=== PATIENT | female | born 2000 | race Two or more races ===

== ENCOUNTER 2021-06-11 11:15 | Inpatient (IN) | payer OTHER ==
[~2021-06-11] VITALS: Ht 157.5 cm; Wt 65.8 kg
[2021-06-11] MEDS ORDERED: hydrALAZINE HCL 20 MG/ML VL ONE (11:51)
[2021-06-11] MEDS: hydrALAZINE HCL 20 MG/ML VL IV PRN ×3 (11:54→12:32)
[2021-06-11] MEDS ORDERED: PHISODERM TOP SOLN 240ML BTL TOP PRN (12:15)
[2021-06-11] MEDS ORDERED: BUTORPHANOL TARTRATE 2 MG/1 ML VIAL IV PRN (12:15)
[2021-06-11] MEDS ORDERED: LIDOCAINE 2%HCL (LOCAL ANESTH.) INJ 20ML MDV IJ PRN (12:15)
[2021-06-11] MEDS ORDERED: LACTATED RINGER'S 1,000 ML IV SCH (12:15)
[2021-06-11] MEDS ORDERED: WITCH HAZEL-GLYCERIN PAD TOP PRN (12:15)
[2021-06-11] MEDS ORDERED: LORazepam 2MG/ML-1ML VIAL IV PRN (12:15)
[2021-06-11] MEDS ORDERED: PROMETHAZINE HCL 25 MG/ML 1ML IV PRN (12:15)
[2021-06-11] MEDS ORDERED: DERMOPLAST 60ML BOTTLE TOP PRN (12:15)
[2021-06-11] MEDS ORDERED: MAGNESIUM SULFATE 100 ML IV ONE ×2 (12:15→12:20)
[2021-06-11] MEDS ORDERED: MAGNESIUM SULFATE 40MG/ML 1,000 ML IV ONE (12:20)
[2021-06-11] MEDS: LACTATED RINGER'S 1,000 ML IV SCH ×2 (12:33→21:14)
[2021-06-11 12:37] LABS: Hemoglobin 14.6 g/dL (12.2-16.2); Mean Corpuscular Hemoglobin 30.4 pg (28.0-32.0); Mean Corpuscular Volume 89.5 fL (80.0-100.0); Red Blood Cells 4.81 10^6/uL (4.0-5.20); Red Cell Distribution Width 15.1 % (11.8-14.3); White Blood Cell 13.7 10^3/uL (4.4-10.8)
[2021-06-11 12:40] LABS: Urine Bacteria NONE SEEN /hpf (None Seen); Urine Blood 3+ /uL (Negative); Urine Hyaline Cast FEW /lpf (0 - 2); Urine Specific Gravity 1.005 (1.001-1.035); Urine WBC 1 /hpf (0 - 5)
[2021-06-11 12:42] LABS: Basophils % (manual) 0 (0.0-2.0); Blast Cells 0; Myelocytes % 0; Promyelocytes % 0; Reactive Lymphocytes 0
[2021-06-11] MEDS: MAGNESIUM SULFATE 40MG/ML 1,000 ML IV SCH (12:44)
[2021-06-11 12:45] LABS: Alcohol, Urine < 3.0 mg/dL (0-10); Amphetamine Screen, Urine NEGATIVE (NEGATIVE); Barbiturate Scree,Urine NEGATIVE (NEGATIVE); Benzodiazephine Screen, Urine NEGATIVE (NEGATIVE); Cannabinoid Screen, Urine NEGATIVE (NEGATIVE); Cocaine Screen, Urine NEGATIVE (NEGATIVE); Opiate Scree,Urine NEGATIVE (NEGATIVE); Phencyclidine Screen, Urine NEGATIVE (NEGATIVE)
[2021-06-11 12:53] LABS: INR 0.89 (0.9-1.15); Partial Thromboplastin Time 31.6 sec (23.6-33.0)
[2021-06-11 12:56] LABS: Protein, Urine 257.3 mg/dL (0.0-11.9)
[2021-06-11 12:56] LABS: Albumin 2.2 g/dL (3.4-5.0); Calcium 8.3 mg/dL (8.5-10.1); Potassium 3.5 mmol/L (3.5-5.1); Uric Acid 9.5 mg/dL (2.6-6.0)
[2021-06-11] MEDS ORDERED: miSOPROStol 100 mcg TAB PR PRN (13:00)
[2021-06-11] MEDS ORDERED: PENICILLIN G POT 5MIL/D5 50ML 50 ML IV ONE (13:00)
[2021-06-11] MEDS ORDERED: miSOPROStol 100 mcg TAB SL PRN (13:00)
[2021-06-11] MEDS ORDERED: LACT. RINGERS/OXYTOCIN 20UNITS 500 ML IV ONE ×2 (13:00→13:30)
[2021-06-11 13:03] LABS: BUN/Creatinine Ratio 15.4; Bilirubin, Total 0.4 mg/dL (0.2-1.0); Total Protein 6.1 g/dL (6.4-8.2)
[2021-06-11] MEDS ORDERED: CARBOPROST TROMETHAMINE 250 MCG/1ML VIAL IM PRN (13:15)
[2021-06-11 13:41] LABS: Band Neutrophils % (manual) 5; Eosinophils % (manual) 1 (0-7); Lymphocytes % (manual) 27 (10.0-50.0); Metamyelocytes % 1; Monocytes % (manual) 2 (0-12)
[2021-06-11] MEDS ORDERED: fentaNYL CITRATE 100 MCG/2 ML VL EPI ONE (14:15)
[2021-06-11] MEDS ORDERED: NALOXONE HCL 0.4 MG/ML VIAL IV ONE ×2 (14:15→16:00)
[2021-06-11] MEDS ORDERED: LIDOCAINE HCL 2 %PF INJ 10ML AMP IJ ONE (14:15)
[2021-06-11] MEDS ORDERED: ePHEDrine SULFATE 50 MG/ML AMP IV ONE ×2 (14:15→16:00)
[2021-06-11] MEDS ORDERED: ROPIVACAINE HCL 200 ML EPI SCH ×2 (14:15→16:00)
[2021-06-11] MEDS ORDERED: SODIUM CHLORIDE 0.9% 500 ML IV PRN (16:00)
[2021-06-11] MEDS ORDERED: LACTATED RINGER'S 500 ML IV ONE (16:00)
[2021-06-11] MEDS ORDERED: CARBOPROST TROMETHAMINE 250 MCG/1ML VIAL IM ONE (16:15)
[2021-06-11] MEDS ORDERED: PENICILLIN G POTASSIUM 2,500,000 UNITS in D5W 5% 50 ML IV SCH (17:00)
[2021-06-11] MEDS ORDERED: ACETAMINOPHEN 325 MG TAB PO PRN (17:15)
[2021-06-11] MEDS: LABETALOL HCL 200 MG TAB PO SCH ×2 (18:09→21:43)
[2021-06-11] MEDS: ceFAZolin 1GM/50ML 50 ML IV SCH (19:08)
[2021-06-11] MEDS: IBUPROFEN 600 MG TAB PO PRN (21:42)
[2021-06-11 23:00] VITALS: BP 144/78
[2021-06-11 23:20] LABS: Basophils # (auto) 0.2 10 ^3/uL (0-0.2); Basophils % (auto) 0.9 % (0.0-2.0); Eosinophils # (auto) 0 10 ^3/uL (0-0.8); Hematocrit 34.8 % (36.0-46.0); Hemoglobin 11.9 g/dL (12.2-16.2); Lymphocytes # (auto) 2.4 10 ^3/uL (0.4-5.4); Lymphocytes % (auto) 10.5 % (10.0-50.0); Mean Corpuscular Hemoglobin 30.9 pg (28.0-32.0); Mean Corpuscular Hgb Conc. 34.2 g/dL (32.0-36.0); Mean Corpuscular Volume 90.3 fL (80.0-100.0); Monocytes # (auto) 1.7 10 ^3/uL (0-1.3); Monocytes % (auto) 7.5 % (0.0-12.0); Neutrophils # (auto) 18.7 10 ^3/uL (1.6-8.6); Neutrophils % (auto) 81.1 % (37.0-80.0); Nucleated Red Blood Cells % 1.3 %; Red Blood Cells 3.85 10^6/uL (4.0-5.20); Red Cell Distribution Width 15.2 % (11.8-14.3)
[2021-06-11 23:41] LABS: Albumin 1.7 g/dL (3.4-5.0); Calcium 7.4 mg/dL (8.5-10.1)
[2021-06-11 23:44] LABS: BUN/Creatinine Ratio 13.9; Bilirubin, Total 0.3 mg/dL (0.2-1.0); Total Protein 4.5 g/dL (6.4-8.2)
[2021-06-12] VITALS (9 sets, daily range): BP systolic 118–139; BP diastolic 72–83
[2021-06-12] MEDS ORDERED: ONDANSETRON HCL 4 MG/2 ML VIAL IV ONE (02:15)
[2021-06-12] MEDS: ceFAZolin 1GM/50ML 50 ML IV SCH ×3 (03:07→19:20)
[2021-06-12] MEDS: LACTATED RINGER'S 1,000 ML IV SCH ×2 (03:08→15:10)
[2021-06-12 05:05] LABS: Basophils # (auto) 0.1 10 ^3/uL (0-0.2); Basophils % (auto) 0.6 % (0.0-2.0); Eosinophils # (auto) 0 10 ^3/uL (0-0.8); Eosinophils % (auto) 0.1 % (0.0-7.0); Hematocrit 31.8 % (36.0-46.0); Hemoglobin 10.8 g/dL (12.2-16.2); Lymphocytes # (auto) 3.4 10 ^3/uL (0.4-5.4); Lymphocytes % (auto) 16.3 % (10.0-50.0); Mean Corpuscular Hemoglobin 30.7 pg (28.0-32.0); Mean Corpuscular Hgb Conc. 33.8 g/dL (32.0-36.0); Mean Corpuscular Volume 90.7 fL (80.0-100.0); Monocytes % (auto) 9.4 % (0.0-12.0); Neutrophils # (auto) 15.5 10 ^3/uL (1.6-8.6); Neutrophils % (auto) 73.6 % (37.0-80.0); Nucleated Red Blood Cells % 0.9 %; Red Blood Cells 3.51 10^6/uL (4.0-5.20); Red Cell Distribution Width 15.7 % (11.8-14.3)
[2021-06-12 05:07] LABS: Albumin 1.6 g/dL (3.4-5.0); Potassium 3.9 mmol/L (3.5-5.1)
[2021-06-12 05:12] LABS: Bilirubin, Total 0.2 mg/dL (0.2-1.0); Total Protein 4.2 g/dL (6.4-8.2); Uric Acid 10.3 mg/dL (2.6-6.0)
[2021-06-12] MEDS ORDERED: LACT. RINGERS/OXYTOCIN 20UNITS 1,000 ML IV SCH (05:15)
[2021-06-12] MEDS ORDERED: LACT. RINGERS/OXYTOCIN 20UNITS 500 ML IV ONE ×2 (05:15→05:45)
[2021-06-12] MEDS ORDERED: TERBUTALINE SULFATE 1 MG/ML 1ML VIAL SC PRN (05:15)
[2021-06-12 05:51] LABS: INR 0.89 (0.9-1.15); Partial Thromboplastin Time 34.6 sec (23.6-33.0)
[2021-06-12] MEDS: IBUPROFEN 600 MG TAB PO PRN ×3 (06:25→20:35)
[2021-06-12] MEDS ORDERED: [UNRECOGNIZED DRUG - CODE] PO (07:20)
[2021-06-12] MEDS ORDERED: CEPH-509 PO (07:20)
[2021-06-12] MEDS ORDERED: DOCU-94 PO (07:20)
[2021-06-12] MEDS: MAGNESIUM SULFATE 40MG/ML 1,000 ML IV SCH ×2 (08:06→12:16)
[2021-06-12] MEDS: LABETALOL HCL 200 MG TAB PO SCH ×2 (11:18→21:51)
[2021-06-12] MEDS: DOCUSATE CALCIUM 240 MG CAP PO SCH (11:18)
[2021-06-13 03:00] VITALS: BP 141/78
[2021-06-13] MEDS: ceFAZolin 1GM/50ML 50 ML IV SCH ×2 (03:03→11:00)
[2021-06-13 06:29] LABS: Albumin 1.8 g/dL (3.4-5.0); Calcium 7.4 mg/dL (8.5-10.1); Potassium 4.2 mmol/L (3.5-5.1)
[2021-06-13 06:32] LABS: BUN/Creatinine Ratio 20.8; Bilirubin, Total 0.2 mg/dL (0.2-1.0); Total Protein 4.6 g/dL (6.4-8.2); Uric Acid 7.8 mg/dL (2.6-6.0)
[2021-06-13 07:00] VITALS: BP 147/71
[2021-06-13] MEDS ORDERED: LABETALOL HCL 200 MG TAB PO SCH ×2 (07:30→08:15)
[2021-06-13 11:00] VITALS: BP 120/82
[2021-06-13] MEDS: MAGNESIUM SULFATE 40MG/ML 1,000 ML IV SCH (11:00)
[2021-06-13] MEDS: DOCUSATE CALCIUM 240 MG CAP PO SCH (11:12)
[2021-06-13] MEDS ORDERED: LABE100T4 PO (12:45)
[2021-06-13] MEDS ORDERED: TETANUS-DIPTH-ACEL PERTUSSIS 0.5ML SYR Tdap IM ONE (13:30)
[2021-06-13 14:15] VITALS: BP 138/82
[2021-06-14 08:06] LABS: RPR Non Reactive (Non Reactive); Rubella Antibodies, IgG 1.93 index (Immune >0.99)
== END 2021-06-13 14:15 | disposition home or self-care (01) | DRG 560 ==
LOC: LDRP 11:15 → OBSVTOIN 11:15 → LDRP 12:48
PROVIDERS: ADMIT Obstetrics & Gynecology; ATTEND Obstetrics & Gynecology
PROC: 10D07Z6 Extraction of Products of Conception, Vacuum, Via Natural or Artificial Opening (ICD-10-PCS; principal; 2021-06-11)
PROC: 0KQM0ZZ Repair Perineum Muscle, Open Approach (ICD-10-PCS; 2021-06-11)
PROC: 3E0R3BZ Introduction of Anesthetic Agent into Spinal Canal, Percutaneous Approach (ICD-10-PCS; 2021-06-11)
PROC: 0W8NXZZ Division of Female Perineum, External Approach (ICD-10-PCS; 2021-06-11)
PROC: 00HU33Z Insertion of Infusion Device into Spinal Canal, Percutaneous Approach (ICD-10-PCS; 2021-06-11)
PROC: 3E0DXGC Introduction of Other Therapeutic Substance into Mouth and Pharynx, External Approach (ICD-10-PCS; 2021-06-11)
PROC: 10E0XZZ Delivery of Products of Conception, External Approach (ICD-10-PCS; 2021-06-11)
DX: O11.4 Pre-existing hypertension with pre-eclampsia, complicating childbirth (principal); Z37.0 Single live birth; O69.81X0 Labor and delivery complicated by cord around neck, without compression, not applicable or unspecified; Z3A.37 37 weeks gestation of pregnancy; O70.1 Second degree perineal laceration during delivery; Z20.822 Contact with and (suspected) exposure to COVID-19
CPT/HCPCS: 36415; 59025; 59409; 62282; 80053; 80307; 81001; 81002; 82570; 82575; 83735; 84112; 84156; 84550; 85007; 85025; 85027; 85384; 85610; 85730; 86592; 86703; 86762; 86850; 86900; 86901; 87340; 87426; 90715; 94760; 96360; 96361; 96365; 96366; 96372; 96374; G0378; J0690; J2540; J2590; J7060